=== PATIENT | male | born 1965 | race African-American/Black ===

== ENCOUNTER 2017-06-21 18:44 | Emergency (ER) | payer OTHER ==
[2017-06-21 19:07] VITALS: BP 160/106; PULSE 132; BMI 35.9
== END 2017-06-21 19:26 | disposition left against medical advice (07) ==
LOC: JER 18:44
DX: Z53.21 Procedure and treatment not carried out due to patient leaving prior to being seen by health care provider (principal)
CPT/HCPCS: 99281-25